=== PATIENT | female | born 2000 | race African-American/Black ===

== ENCOUNTER 2020-02-29 10:05 | Emergency (ER) | payer OTHER, MEDICAID, SELFPAY ==
[2020-02-29 10:19] VITALS: BP 119/70; PULSE 122; RESP 16; TEMP 39.6; O2SAT 99
--- NOTE | 2020-02-29 10:29 | ED.URI ---
HPI - URI/Sore Throat General Chief Complaint: Upper Respiratory Infection Stated Complaint: sore throat/body aches/sob Time Seen by Provider: 02/29/20 10:25 Source: patient Mode of arrival: ambulatory Limitations: no limitations History of Present Illness HPI Narrative: Ernestina Boone is a 19 yo female with no PMH who comes to express care with complaints of severe sore throat and fever that started on Saturday. States she can still eat a little but has not been drinking fluids and on presentation her fever is 103.3. Patient has not taken anything for fever Related Data Allergies Allergy/AdvReac Type Severity Reaction Status Date / Time nickel Allergy Mild Itching Verified 02/29/20 10:27 Review of Systems Review of Systems: Narrative: CONSTITUTIONAL: Denies fever, chills, sweats. EYES: Denies visual changes, redness, discharge. ENT: Denies rhinorrhea, congestion, sore throat, otalgia. CARDIOVASCULAR: Denies chest pain, palpitations, edema. RESPIRATORY: Denies dyspnea, wheezing, cough GASTROINTESTINAL: Denies abdominal pain, nausea, vomiting, diarrhea. GENITOURINARY: Denies dysuria, hematuria, abnormal discharge SKIN: Denies rash or itching. NEUROLOGIC: Denies numbness, or focal weakness. PSYCHIATRIC: Denies anxiety or depression. [facility] Family History Family History Other No active medical problems Social History Social History (Updated 02/29/20 @ 10:32 by Nancie Bennett CNP) Smoking status: Never smoker Alcohol intake: current Living arrangements: with family Gender identity (if verbalized by the patient): Female Comments At time of signature, I agree with nursing past medical, surgical, social and family history. There is no relevant family history pertinent to the presenting complaint. Exam Narrative: Exam Narrative: GENERAL: This is a well-nourished, well-developed patient, in mild distress. HEAD: normocephalic, atraumatic. EYES: Sclera clear/white. Vision is grossly intact. EARS: External ears normal, auditory canals clear and without drainage, TMs normal without perforation. Hearing grossly intact. NOSE: External nose normal without nasal discharge, nares without redness, no rhinorrhea. THROAT: Mucous membranes moist, posterior pharynx erythema with white patches; hard to swallow NECK: Neck supple, mild tenderness CARDIOVASCULAR: Tachycardic rate and rhythm without murmurs, gallops, or rubs. RESPIRATORY: Clear to auscultation. Breath sounds equal bilaterally. No wheezes, rales, or rhonchi. GASTROINTESTINAL: Abdomen soft, non-tender, SKIN: warm, intact with no suspicious lesions or rash, good texture and turgor. NEURO: awake, alert, and oriented to person, place and time. There were no obvious focal neurologic abnormalities. Steady gait EXTREMITIES: Normal range of motion. BACK: Nontender without deformity Course Course Emergency Course: Strep test is positive-started on penicillin; given Toradol IM here for pain and fever Patient follow-up with PCP Vital Signs Vital signs: Vital Signs Temperature 103.3 F H 02/29/20 10:19 Pulse Rate 122 H 02/29/20 10:19 Respiratory Rate 16 02/29/20 10:19 Blood Pressure 119/70 02/29/20 10:19 Pulse Oximetry 99 02/29/20 10:19 Temperature 103.3 F H 02/29/20 10:19 Pulse Rate 122 H 02/29/20 10:19 Respiratory Rate 16 02/29/20 10:19 Blood Pressure 119/70 02/29/20 10:19 Pulse Oximetry 99 02/29/20 10:19 MDM - URI/Sore Throat Differential Diagnosis Differential diagnosis: Likely upper respiratory infection, viral infection, pharyngitis and other Lab Data Labs: Strep Screen Positive Group A Strep *(Reference Range: Negative)* Strep Screen Positive Group A Strep *(Reference Range: Negative)* Discharge Plan Discharge Clinical Impression: Pharyngitis Qualifiers: Pharyngitis/tonsillitis etiology: streptococcus Qualified
== END 2020-02-29 11:09 | disposition home or self-care (01) ==
PROVIDERS: Emergency Provider Nurse Practitioner
DX: J02.0 Streptococcal pharyngitis (principal)
CPT/HCPCS: 87880; 99213; G0463

== ENCOUNTER 2021-07-09 11:35 | Emergency (ER) | payer OTHER, SELFPAY ==
[2021-07-09 11:42] VITALS: BP 118/71; PULSE 100; RESP 20; TEMP 36.2; O2SAT 99
--- NOTE | 2021-07-09 11:56 | ED.GENADULT ---
HPI - General Adult General Chief complaint: Unspecified <Tayla Doe PA-C - Last Filed: 07/09/21 13:23> Stated complaint: i feel like i might be <BRENDA Siddiqui Last Filed: 07/09/21 13:23> Time Seen by Provider: 07/09/21 11:43 <BRENDA Siddiqui Last Filed: 07/09/21 13:23> Source: patient <BRENDA Siddiqui Last Filed: 07/09/21 13:23> Mode of arrival: ambulatory <BRENDA Siddiqui Last Filed: 07/09/21 13:23> Limitations: no limitations <BRENDA Siddiqui Last Filed: 07/09/21 13:23> History of Present Illness HPI narrative: This is a 20-year-old female that presents to the emergency department and concern of a possible . Reports she did just have a menstrual cycle that started on the . Reports it was only very light bleeding and ended yesterday. This is abnormal for her and concerned her that she was possibly . She took a home test that was negative. She reports some mild lower abdominal discomfort. Also reports urinary frequency. Denies fever, vomiting, dysuria, hematuria. <Tayla Doe PA-C - Last Filed: 07/09/21 13:23> Related Data Allergies/adverse reactions: Allergies Allergy/AdvReac Type Severity Reaction Status Date / Time nickel Allergy Mild Itching Verified 02/29/20 10:27 <Tayla Doe PA-C - Last Filed: 07/09/21 13:23> Review of Systems Review of Systems: CONSTITUTIONAL: Denies fever GASTROINTESTINAL: Reports abdominal pain. Denies nausea, vomiting, or diarrhea. GENITOURINARY: Denies dysuria or hematuria. <BRENDA Siddiqui Last Filed: 07/09/21 13:23> All systems reviewed & are unremarkable except as noted in HPI and below <BRENDA Siddiqui Last Filed: 07/09/21 13:23> [facility] Past Medical History Medical History: Medical History (Updated 07/09/21 @ 13:18 by Tayla Doe PA-C) No active medical problems <Tayla Doe PA-C - Last Filed: 07/09/21 13:23> Family History Family History: Family History Other No active medical problems <Tayla Doe PA-C - Last Filed: 07/09/21 13:23> Social History Social History: Social History (Updated 07/09/21 @ 11:58 by Tayla Doe PA-C) Smoking status: Current every day smoker Alcohol intake: current Substance use: current Substance use type: marijuana Gender identity (if verbalized by the patient): Female <Tayla Doe PA-C - Last Filed: 07/09/21 13:23> Exam Narrative: GENERAL: Well-appearing, well-nourished, and in no acute distress. HEAD: Normocephalic, atraumatic. EYES: EOMI. CHEST: Clear to auscultation. No respiratory distress. No wheezes rales or rhonchi HEART: Regular rate and rhythm. No murmur heard. Normal peripheral pulses. ABDOMEN: Soft, nontender, nondistended, normal active bowel sounds. No CVA tenderness EXTREMITIES: Normal range of motion. No edema. SKIN: Warm, dry, no rash. NEURO: No focal deficits. Alert and oriented x3. PSYCH: Normal mood and affect <Tayla Doe PA-C - Last Filed: 07/09/21 13:23> Course CUSTOMS COMPLIANCE SPECIALIST/PA Physician Supervision I did not see this patient nor was the care plan discussed with me. I was available for evaluation and consultation, I agree with the documentation as above <Wolf Peralta MD - Last Filed: 07/09/21 14:10> Vital Signs Vital signs: Vital Signs Temperature 36.2 C L 07/09/21 11:42 Pulse Rate 100 07/09/21 11:42 Respiratory Rate 20 07/09/21 11:42 Blood Pressure 118/71 07/09/21 11:42 Pulse Oximetry 99 07/09/21 11:42 Temperature 36.2 C L 07/09/21 11:42 Pulse Rate 70 07/09/21 13:27 Respiratory Rate 18 07/09/21 13:27 Blood Pressure 132/68 07/09/21 13:27 Pulse Oximetry 99 07/09/21 13:27 <Tayla Doe PA-C - Last Filed: 07/09/21 13:23> Vital Signs Temperature 36.2 C L 07/09/21 11:42 Pulse Rat
[2021-07-09 12:23] LABS: Basophils Absolute Auto 0.1 K/mm3 (0.0-0.1); Basophils Percent Auto 0.7 % (0.2-1.2); Eosinophils Absolute Auto 0.2 K/mm3 (0-0.3); Eosinophils Percent Auto 2.2 % (0-4.4); Hematocrit 38.8 % (37.0-47.0); Hemoglobin 13.1 g/dL (12.0-15.0); Immature Granulocyte Absolute 0.02 K/mm3 (0.00-0.031); Immature Granulocyte Percent A 0.3 % (0-0.5); Lymphocytes Absolute Auto 1.99 K/mm3 (0.9-3.2); Lymphocytes Percent Auto 29.3 % (18.3-44.2); Mean Corpuscular HGB Conc 33.8 g/dl (32-36); Mean Corpuscular Hemoglobin 30.7 pg (26-34); Mean Corpuscular Volume 90.9 fl (80-100); Monocytes Absolute Auto 0.5 K/mm3 (0.1-0.6); Monocytes Percent Auto 7.4 % (2.6-8.5); Neutrophils Absolute Auto 4.1 K/mm3 (1.3-6.7); Neutrophils Percent Auto 60.1 % (45.5-73.1); Platelet Count Result 429 k/mm3 (150-375); Red Blood Count 4.27 M/mm3 (4.2-5.4); Red Cell Distribution Width 13.3 % (11.5-14.5); White Blood Count 6.8 K/mm3 (4.5-10.0)
[2021-07-09 12:27] LABS: Add Urine Microscopic? YES; Appearance Urine Cloudy (Clear); Bilirubin Urine Negative (Negative); Blood Urine Negative (Negative); Color Urine Yellow (Yellow); Glucose Urine UA Negative (Negative); Ketones Urine Negative (Negative); Leukocyte Esterase Ur Negative LEU/UL (Negative); Nitrate Urine Negative (Negative); Protein Urine Negative (Negative); RBC Urine 0-2 /hpf (0-2); Specific Grav Ur 1.016 (1.001-1.035); Squamous Epithelial Cell Urine Rare /hpf (Few); Urobilinogen Urine Negative mg/dL (<2.0); WBC Urine 0-3 /hpf
[2021-07-09 12:54] LABS: Alanine Aminotransferase 22 U/L (4-35); Albumin Level 4.5 g/dL (3.5-5.1); Alkaline Phosphatase 44 U/L (38-126); Anion Gap 7 mmol/L (8-16); Aspartate Amino Transferase 25 U/L (14-36); Bilirubin,Total < 0.1 mg/dL (0.2-1.3); Blood Urea Nitrogen 16 mg/dL (7-17); Calcium 9.8 mg/dL (8.4-10.2); Carbon Dioxide 29 mmol/L (22-30); Chloride 103 mmol/L (98-107); Estimated CRCL calculation 76 ml/min; Estimated Glomerular Filt Rate > 60; Glucose 82 mg/dL (65-110); Potassium 4.1 mmol/L (3.4-5.0); Sodium 139 mmol/L (137-145)
[2021-07-09 13:27] VITALS: BP 132/68; PULSE 70; RESP 18; O2SAT 99
== END 2021-07-09 13:30 | disposition home or self-care (01) ==
PROVIDERS: Physician Assistant; Emergency Provider Emergency Medicine; PCP Emergency Medicine
DX: N93.9 Abnormal uterine and vaginal bleeding, unspecified (principal); F17.200 Nicotine dependence, unspecified, uncomplicated
CPT/HCPCS: 36415; 80053; 81001; 81025; 85025; 99283

== ENCOUNTER 2022-01-06 02:57 | Observation (INO) | payer OTHER, SELFPAY ==
[2022-01-06] VITALS (7 sets, daily range): BP systolic 94–128; BP diastolic 62–84; PULSE 53–78; RESP 16–20; TEMP 36.1–36.9; O2SAT 97–100; BMI 22.6
--- NOTE | ~2022-01-06 | XR_ITS ---
EXAMINATION: XR surgery orthopedic DATE: 01/08/2022 16:15 INDICATION: ORIF right ankle fracture TECHNIQUE: 4 fluoroscopic images of the right ankle were obtained during procedure performed by Dr. Franklin guzman. Radiologist was not present for the imaging or procedure. The amount of fluoroscopy time used during this procedure was 2.9 minutes. COMPARISON: 01/06/2022 FINDINGS: Interval open reduction internal fixation of the previously noted bimalleolar fracture of the right a nkle. The medial malleolar fractures fixed with a single cannulated lag screw. The distal fibular met adiaphyseal fractures fixed with a retrograde intramedullary maggie with distal interlocking screw. Mansfield llic buttons are seen at both the tibial and fibular sides of a pair of lucent tunnels for syndesmoti c wire fixation extending across the metaphyses of the distal tibia and fibula. Alignment appears ess entially anatomic with a congruent ankle mortise. The medial malleolar fracture line appears to exten d to involve the anteromedial aspect of the tibial plafond and without significant fracture gap or in congruity. Joint spaces are relatively preserved. IMPRESSION: 1. Near-anatomic alignment post reduction and internal fixation of a bimalleolar fracture of the righ t ankle. Reviewed, dictated and finalized at location A. IMPRESSION: 1. Near-anatomic alignment post reduction and internal fixation of a bimalleola r fracture of the right ankle.
--- NOTE | ~2022-01-06 | XR_ITS ---
XR ankle RT min 3V DATE: 01/06/2022 03:41 INDICATION: Fall 2 days ago, worsening pain. TECHNIQUE: 3 views COMPARISON: None FINDINGS: Mildly comminuted fracture of the distal fibular shaft with approximately one cortical widt h lateral displacement. Transverse fracture of the medial malleolus at the level of the talar dome, with up to 2.5 mm lateral displacement. There is associated lateral subluxation of the tibiotalar joint. IMPRESSION: Comminuted distal fibular fracture and medial malleolar fracture, with lateral subluxatio n of the tibiotalar Reviewed, dictated and finalized at location A. IMPRESSION: Comminuted distal fibular fracture and medial malleolar fracture, w ith lateral subluxation of the tibiotalar
--- NOTE | 2022-01-06 03:10 | ED.LOWEXIN ---
HPI - Extremity Injury (Lower) General Chief Complaint: Extremity Injury, Lower Stated Complaint: ANKLE PAIN Time Seen by Provider: 01/06/22 03:03 Source: patient History of Present Illness HPI Narrative: Patient presents with right ankle injury. Reports he fell on the steps a couple days ago approximately 6 steps she feels like she shattered her ankle. She called EMS at that time and asked for an Ronald wrap however declined valuation emergency room. She applied tape to her ankle and a hair tie and then a Ronald wrap. She watch her symptoms at home however pain got progressively worse she had increasing swelling so she called EMS tonight and came to the ER for further evaluation. Reports pain is constant and sharp is around the whole ankle radiates up her leg worse with any sort of movement of her lower extremity. She denies any focal numbness or weakness. She denies striking her head she denies any loss of consciousness denies use of blood thinners Related Data Allergies Allergy/AdvReac Type Severity Reaction Status Date / Time nickel Allergy Mild Itching Verified 01/06/22 03:08 Review of Systems Review of Systems: CONSTITUTIONAL: Denies fever, chills, or sweats. EYES: Denies visual changes, redness, or discharge. ENT: Denies rhinorrhea, congestion, sore throat, or otalgia. CARDIOVASCULAR: Denies chest pain, palpitations, or edema. RESPIRATORY: Denies cough or dyspnea. GASTROINTESTINAL: Denies abdominal pain, nausea, vomiting, or diarrhea. GENITOURINARY: Denies dysuria or hematuria. SKIN: Denies rash or itching. MUSCULOSKELETAL: Denies back pain, joint pain, or myalgia. NEUROLOGIC: Denies headache, numbness, dizziness, or weakness. PSYCHIATRIC: Denies anxiety or depression. All systems reviewed & are unremarkable except as noted in HPI and below PMFSH Past Medical History Medical History No active medical problems Family History Family History Other No active medical problems Social History Social History Smoking status: Current every day smoker Alcohol intake: current Substance use: current Substance use type: marijuana Gender identity (if verbalized by the patient): Female Exam Narrative: GENERAL: Well-appearing, well-nourished, and in no acute distress. HEAD: Normocephalic, atraumatic. EYES: PERRLA and EOMI. ENT: Nares clear, no rhinorrhea or epistaxis. Mucous membranes moist. NECK: Supple. No masses. No JVD EXTREMITIES: Diffuse pain to the right ankle with diffuse edema sensation intact to light touch in the distal extremity cap refill less than 2 seconds in the distal extremity. Range of motion limited by pain SKIN: Warm, dry, no rash. NEURO: No focal deficits. Alert and oriented x3. PSYCH: Normal mood and affect. Course Reevaluation(s) Reevaluation #1: Patient resting comfortably patient reports does not have any social support is unable to get herself to and from clinic or the hospital right now she has no vehicle has limited funds as she recently lost her job. Patient reports she needs time to coordinate additional assistance. Patient limited ability to care for herself and concern for ability to get timely outpatient evaluation patient will be admitted for more urgent surgical management. Patient is comfortable inpatient plan. Date: 01/06/22 Time: 06:52 Consultations Consultation #1: Discussed with Dr. Murray who will admit for surgical management Date: 01/06/22 Time: 06:53 Vital Signs Vital signs: Vital Signs Temperature 36.5 C 01/06/22 03:05 Pulse Rate 77 01/06/22 03:05 Respiratory Rate 16 01/06/22 03:05 Blood Pressure 128/84 01/06/22 03:05 Pulse Oximetry 100 01/06/22 03:05 Temperature 36.5 C 01/06/22 03:05 Pulse Rate 78 01/06/22 07:13 Respiratory Rate 16 01/06/22 07:13 Blood Pressure 106/75
[2022-01-06] MEDS: MORPHINE SULFATE (*CRX) 4 MG/ML INJ IV PUSH ×5 (03:17→21:40)
[2022-01-06 03:29] LABS: Basophils Absolute Auto 0.1 K/mm3 (0.0-0.1); Basophils Percent Auto 0.9 % (0.2-1.2); Eosinophils Absolute Auto 0.2 K/mm3 (0-0.3); Hematocrit 44.7 % (37.0-47.0); Hemoglobin 14.3 g/dL (12.0-15.0); Immature Granulocyte Absolute 0.03 K/mm3 (0.00-0.031); Immature Granulocyte Percent A 0.4 % (0-0.5); Lymphocytes Absolute Auto 1.99 K/mm3 (0.9-3.2); Lymphocytes Percent Auto 25.7 % (18.3-44.2); Mean Corpuscular Hemoglobin 30.4 pg (26-34); Mean Corpuscular Volume 94.9 fl (80-100); Mean Platelet Volume 8.9 fl (7.4-10.4); Monocytes Absolute Auto 0.6 K/mm3 (0.1-0.6); Neutrophils Absolute Auto 4.8 K/mm3 (1.3-6.7); Platelet Count Result 380 k/mm3 (150-375); Red Blood Count 4.71 M/mm3 (4.2-5.4); Red Cell Distribution Width 12.9 % (11.5-14.5); White Blood Count 7.8 K/mm3 (4.5-10.0)
[2022-01-06 03:42] LABS: Alanine Aminotransferase 16 U/L (4-35); Albumin Level 4.8 g/dL (3.5-5.1); Alkaline Phosphatase 47 U/L (38-126); Anion Gap 7 mmol/L (8-16); Aspartate Amino Transferase 27 U/L (14-36); Bilirubin,Total 0.5 mg/dL (0.2-1.3); Blood Urea Nitrogen 13 mg/dL (7-17); Carbon Dioxide 27 mmol/L (22-30); Chloride 104 mmol/L (98-107); Estimated CRCL calculation 75 ml/min; Estimated Glomerular Filt Rate > 60; Glucose 108 mg/dL (65-110); Sodium 138 mmol/L (137-145)
--- NOTE | 2022-01-06 07:07 | PC.NURSE ---
Report given Karla BROWNLEE
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
[2022-01-06] MEDS: SODIUM CHLORIDE 0.9% IV 1,000 ML 125 ML IV CONT ×2 (09:36→21:40)
--- NOTE | 2022-01-06 09:57 | ADMGEN ---
This patient, Ernestina Boone, was admitted to Medical Room 343-01. Patient/family oriented to hospital policies and general routines including ID bracelet, bed and alarms, visiting hours, pain management, procedures, bathroom and other care routines, personal items, smoking policy, room service/diet, and visiting hours. Information on how to activate the Rapid Response Team has been discussed. Patient/Family are encouraged to report perceived risks to care and to ask questions if they do not understand what they are told or what they should do.
[2022-01-06 11:37] LABS: SPREG INTERNAL CONTROL Positive; Serum Qual hCG Negative
[2022-01-06 12:17] LABS: HIV 1/2 Ab P24 Ag Result Negative (Negative)
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
[2022-01-06 13:27] LABS: Hepatitis B Surface Antigen Negative (Negative)
[2022-01-06 13:33] LABS: HAV RESULT Negative (Negative); Hepatitis B Core IgM Result Negative (Negative)
[2022-01-06 13:50] LABS: Hepatitis C Virus Antibody Negative (Negative)
[2022-01-06] MEDS: HYDROcodone/acetaminophen (*CRX) 5-325 MG TABLET 1 TAB PO (14:37)
[2022-01-06 14:59] LABS: Amphetamine Screen Urine Negative (Negative); Barbiturate Screen Urine Negative (Negative); Benzodiazepines Screen Urine Negative (Negative); Cannabinoid Screen Urine Positive (Negative); Cocaine Screen Urine Negative (Negative); Methadone Screen Urine Negative (Negative); Opiate Screen Urine Positive (Negative); Phencyclidine Screen Urine Negative (Negative)
--- NOTE | 2022-01-06 17:30 | PC.NURSE ---
Patient appears to be hallucinating in room. Screaming get out of here and I hate you when by herself in the room. Upon entering the room, patient was by herself, she was not on her phone, and her tv was off.
[2022-01-06] MEDS: ALPRAZolam (*CRX) 0.5 MG TABLET PO (18:41)
[2022-01-07] MEDS: HYDROcodone/acetaminophen (*CRX) 5-325 MG TABLET 1 TAB PO ×3 (01:03→21:01)
[2022-01-07] MEDS: MORPHINE SULFATE (*CRX) 4 MG/ML INJ IV PUSH ×6 (02:37→21:30)
[2022-01-07 06:00] VITALS: BP 121/40; PULSE 56; RESP 16; TEMP 36.6; O2SAT 100
--- NOTE | 2022-01-07 08:00 | PC.NURSE ---
Patient screaming at IV pole/beeping seemed to agitate the pt. Fluids temporarily locked off while patient is eating and drinking well and will be resumed when NPO at 0000 to reduce agitation.
--- NOTE | 2022-01-07 09:03 | PM.PNORT ---
Progress Note: A&P Assessment and Plan (1) Bimalleolar ankle fracture: Onset Date: 01/04/22 Qualifiers: Encounter type: initial encounter Fracture type: closed Laterality: right Qualified Code(s): S82.841A - Displaced bimalleolar fracture of right lower leg, initial encounter for closed fracture Code(s): S82.843A - Displaced bimalleolar fracture of unspecified lower leg, initial encounter for closed fracture Status: Acute Assessment and Plan: Right ankle bimalleolar fracture with syndesmosis disruption. Patient more comfortable today but still complains of right ankle pain. Continue with ice and elevation. Operative and non operative treatment options reviewed. The risks, benefits and alternatives discussed in detail. Patient desires operative treatment. Blood work and laboratory testing partially returned with no significant abnormalities. Positive for THC. Some blood work still pending. Plan for care coordination and counseling. Plan for surgical treatment. Discussed nonoperative and operative treatment options with the patient. Risks and benefits of each as well as alternatives were reviewed. All of the patient's questions were answered. The risks of surgery reviewed including but not limited to: Neurovascular damage, wound complication, infection, blood clot, pulmonary embolus, stroke, myocardial infarction, and anesthetic risks up to and including . Continued pain and possible dysfunction were explained. Specific risks of the procedure including later recurrence of deformity. No guarantees were offered. If hardware used, discussed risk of failure/ breakage and possible need for removal. If complications occur, the patient understands the need for further treatment, possible further surgery. Patient verbalizes understanding and wishes to proceed. PLAN: Open reduction internal fixation right ankle fracture, syndesmosis disruption. (2) Acute disruption of syndesmosis of ankle joint: Code(s): S93.439A - Sprain of tibiofibular ligament of unspecified ankle, initial encounter Status: Acute Subjective Subjective Date/Time Seen: 01/07/22 09:03 Principal diagnosis: Right ankle bimalleolar fracture Interval history: patient states still with right ankle pain. More comfortable overall. Review of Systems Constitutional: Constitutional: Denies fever(s) Eyes: Eyes: Denies blurry vision ENT: Reports Normal hearing present Cardiovascular: Cardiovascular: Denies chest pain and Denies dyspnea Respiratory: Respiratory: Denies dyspnea and Denies wheezing Gastrointestinal: Gastrointestinal: Denies abdominal pain Genitourinary: Genitourinary: Denies urinary urgency Musculoskeletal: Musculoskeletal: Reports as per HPI and Denies numbness Integumentary/Breasts: Skin/Breast: Denies changing lesions and Denies sores Neurologic: Reports Normal hearing present, Denies behavioral changes, Denies confusion, Denies numbness and Denies convulsions Psychiatric: Psychiatric: Denies behavioral changes, Denies confusion and Denies hallucinations Endocrine: Endocrine: Denies heat intolerance Hematologic/Lymphatic: Hematologic/Lymphatic: Denies easy bleeding Allergic/Immunologic: Allergic/Immunologic: Denies wheezing Exam Const: General: No confusion Orientation/consciousness: patient oriented x3 and No confusion HENMT: Head: normal to inspection, normocephalic and atraumatic Eyes: Conjunctivae: conjunctivae normal Sclera: sclerae normal Neck: Neck: supple and nontender Chest: Chest palpation & inspection: normal inspection of the chest Resp: Effort & Inspection: normal respiratory effort and no audible wheezes Cardio: Rate: regular rate Rhythm: regular rhythm : General: Yes deferred Skin: General skin exam: no rashes or lesions noted Neuro: General: patient oriented x3 and No confusion Extrem: General: capillary refill normal Right upper extrem
[2022-01-07] MEDS: ALPRAZolam (*CRX) 0.5 MG TABLET PO (10:07)
--- NOTE | 2022-01-07 11:00 | PC.NURSE ---
Patient heard screaming in her room again when in the room by herself. Upon entering room, patient had baby powder caked on her face and chest. When asked if she wanted a wash rag to wash it off, she said that she wanted to leave it for a while and that it was for her acne. Will continue to monitor.
[2022-01-07 14:00] VITALS: BP 127/98; PULSE 112; RESP 18; TEMP 36.8; O2SAT 100
--- NOTE | 2022-01-07 14:00 | PC.NURSE ---
Dr. Bansal recommended calling Dr. Michelle and doing a psychiatric consult. Dr. Michelle recommended an inpatient psych referral be made via care coordination/crisis and that a consult was unnecessary at this time. After her surgery tomorrow, a referral should be made for an inpatient psych setting, as that would be more appropriate.
--- NOTE | 2022-01-07 15:36 | PM.IMCN ---
Assessment and Plan Assessment and plan (1) Acute disruption of syndesmosis of ankle joint: Code(s): S93.439A - Sprain of tibiofibular ligament of unspecified ankle, initial encounter Status: Acute Assessment and Plan: presented with complaint of right lower extremity pain unable to bear weight patient is a poor historian sometimes states fell off the stairs and sometimes he jumped off the window, however x-ray of the lower extremity showed fracture of the right ankle patient is seen by orthopedic surgeon is scheduled to have ORIF tomorrow, patient appeared to be having psychiatry problem and patient will benefit going to inpatient psychiatry care, once the patient is clinically stable will have a crisis team evaluate the patient and further recommendation to follow, patient's nurse Maite is present in the room. (2) Psychiatric disorder: Code(s): F99 - Mental disorder, not otherwise specified Status: Acute Assessment and Plan: once medically stable will have crisis team evaluate the patient patient will benefit going to inpatient psychiatry care. HPI Data of Consult Consult date: 01/07/22 Requesting Physician: Javi Murray MD Primary Care Provider: Ricky Hugo MD Consult Narrative Reason for consult: medical management Narrative: Ernestina Boone is a 21 year old female presented with complaint of right lower extremity pain unable to bear weight patient is a poor historian sometimes states fell off the stairs and sometimes he jumped off the window, however x-ray of the lower extremity showed fracture of the right ankle patient is seen by orthopedic surgeon is scheduled to have ORIF tomorrow, patient appeared to be having psychiatry problem and patient will benefit going to inpatient psychiatry care, once the patient is clinically stable will have a crisis team evaluate the patient and further recommendation to follow, patient's nurse Maite is present in the room patient admitted as observation status Review of Systems Review of Systems: ROS unobtainable: Yes unobtainable due to medical condition PMFSH Past Medical History Medical History (Updated 01/07/22 @ 15:41 by Asael Bansal MD) Acute disruption of syndesmosis of ankle joint No active medical problems Family History Family History Grandparent HIV (human immunodeficiency virus infection) Social History Social History Years smoked: 3 Smoking status: Current every day smoker Tobacco type: cigarettes Alcohol intake: never Substance use: current Substance use type: marijuana Gender identity (if verbalized by the patient): Female Spiritual care concerns: No Meds Home Medications and Allergies Home Medications Medication Instructions Recorded Confirmed Type No Home Medications 01/06/22 01/06/22 History Allergies Allergy/AdvReac Type Severity Reaction Status Date / Time nickel Allergy Mild Itching Verified 01/06/22 11:02 Vital Signs Vital Signs - 24 hr 01/06/22 22:00 01/07/22 06:00 01/07/22 14:00 Temperature 96.9 F L 97.8 F 98.2 F Pulse Rate 77 56 L 112 H Respiratory Rate 16 16 18 Blood Pressure 112/72 121/40 L 127/98 H Pulse Oximetry 100 100 100 Exam Narrative: Patient is comfortable, NAD HEENT: eyes are clear and none icteric LUNGS: normal respiratory effort ABD: not distended Lower extremities: right lower extremity edema and deformed, painful to flex and extend the ankle SKIN: nonjaundiced Neuro: grossly intact. Results Labs CBC & Chem 7: 01/06/22 03:24 01/06/22 03:24 Quality VTE Prophylaxis VTE prophylaxis: mechanical ordered
[2022-01-07 22:00] VITALS: BP 127/63; PULSE 60; RESP 18; TEMP 36.6; O2SAT 100
[2022-01-08] VITALS (13 sets, daily range): BP systolic 113–144; BP diastolic 62–90; PULSE 57–98; RESP 10–20; TEMP 36.2–37.2; O2SAT 99–100
[2022-01-08] MEDS: MORPHINE SULFATE (*CRX) 4 MG/ML INJ IV PUSH ×6 (02:09→22:52)
[2022-01-08 05:47] LABS: Hemoglobin 12.6 g/dL (12.0-15.0); Mean Corpuscular HGB Conc 33.2 g/dl (32-36); Mean Corpuscular Hemoglobin 30.4 pg (26-34); Mean Corpuscular Volume 91.8 fl (80-100); Mean Platelet Volume 8.7 fl (7.4-10.4); Platelet Count Result 373 k/mm3 (150-375); Red Blood Count 4.14 M/mm3 (4.2-5.4); Red Cell Distribution Width 12.2 % (11.5-14.5); White Blood Count 5.7 K/mm3 (4.5-10.0)
[2022-01-08 06:00] LABS: Anion Gap 4 mmol/L (8-16); Blood Urea Nitrogen 10 mg/dL (7-17); Calcium 8.6 mg/dL (8.4-10.2); Carbon Dioxide 28 mmol/L (22-30); Chloride 103 mmol/L (98-107); Estimated CRCL calculation 85 ml/min; Estimated Glomerular Filt Rate > 60; Glucose 98 mg/dL (65-110); Sodium 135 mmol/L (137-145)
[2022-01-08 06:46] LABS: Beta HCG Quantitative < 2.39 mIU/ML
--- NOTE | 2022-01-08 13:57 | WPDANESEPPF ---
Anes - Initial Pre Proc Eval Procedure: Operation Date: 01/08/22 14:30 Proposed Procedures p Open Reduction Internal Fixation Right Ankle Fracture - Javi Murray MD Date/Time: 01/08/22 13:57 Surgeon: Javi Murray MD Pre Op Diagnosis: bimalleolar fracture Patient Data Age: 21 Gender: F Height: 1.57 m Weight: 56.3 kg Last Vital Signs Temp 36.2 C L 01/08/22 06:00 Pulse 66 01/08/22 06:00 Resp 16 01/08/22 06:00 BP 113/62 01/08/22 06:00 Pulse Ox 100 01/08/22 12:53 Allergies Allergy/AdvReac Type Severity Reaction Status Date / Time nickel Allergy Mild Itching Verified 01/06/22 11:02 Home Medications Medication Instructions Recorded Confirmed Type No Home Medications 01/06/22 01/06/22 History Laboratory Tests 01/08/22 01/08/22 01/08/22 05:36 05:36 05:36 WBC 5.7 K/mm3 K/mm3 (4.5-10.0) RBC 4.14 M/mm3 L M/mm3 (4.2-5.4) Hgb 12.6 g/dL g/dL (12.0-15.0) Hct 38.0 % % (37.0-47.0) MCV 91.8 fl fl (80-100) MCH 30.4 pg pg (26-34) MCHC 33.2 g/dl g/dl (32-36) RDW 12.2 % % (11.5-14.5) Plt Count 373 k/mm3 k/mm3 (150-375) MPV 8.7 fl fl (7.4-10.4) Sodium 135 mmol/L L mmol/L (137-145) Potassium 4.0 mmol/L mmol/L (3.4-5.0) Chloride 103 mmol/L mmol/L (98-107) Carbon Dioxide 28 mmol/L mmol/L (22-30) Anion Gap 4 mmol/L L mmol/L (8-16) BUN 10 mg/dL mg/dL (7-17) Creatinine 0.70 mg/dL mg/dL (0.7-1.0) Estim Creat Clear Calc 85 ml/min ml/min Estimated GFR > 60 (59 - ) Glucose 98 mg/dL mg/dL (65-110) Calcium 8.6 mg/dL mg/dL (8.4-10.2) Beta HCG, Quant < 2.39 mIU/ML mIU/ML Patient hx anesthesia problems: none Family hx anesthesia problems: none Results Review: All pre-operative results and documents have been reviewed as part of the pre-operative evaluation. [facility] Past Medical History Medical History (Updated 01/08/22 @ 13:58 by James Marshall DO) Acute disruption of syndesmosis of ankle joint Anxiety Depression No active medical problems Family History Family History Grandparent HIV (human immunodeficiency virus infection) Social History Social History Years smoked: 3 Smoking status: Current every day smoker Tobacco type: cigarettes Alcohol intake: never Substance use: current Substance use type: marijuana Gender identity (if verbalized by the patient): Female Spiritual care concerns: No Anes - Eval Final PreProcedure Day of Procedure 01/08/22 13:57 Patient weight: normal Heart: regular rate and rhythm Lungs: clear to auscultation and normal air movement Airway: Mallampati scale class II Neurological: alert and oriented Last oral intake: >/= 8 hours ASA classification: II Emergent: no Anesthetic plan: proceed Anesthesia type and monitoring: general LMA and standard monitoring Results Review: All pre-operative results and documents have been reviewed as part of the pre-operative evaluation. Informed Consent: The patient's anesthetic plan and its attendant risks and benefits were discussed with the patient/family/POA. Questions were solicited and answers provided to the satisfaction of the patient/family/POA.
[2022-01-08] MEDS: LACTATED RINGERS 1,000 ML 30 ML IV CONT ×2 (14:10→16:31)
[2022-01-08] MEDS: KETOROLAC 15 MG/ML VIAL (*BKC) IV PUSH (14:11)
[2022-01-08] MEDS: ACETAMINOPHEN 500 MG TABLET 1000 MG PO (14:11)
--- NOTE | 2022-01-08 14:37 | WPDHPUPDATE1 ---
History and Physical Update Update Date/Time: 01/08/22 14:37 History and Physical has been reviewed, including an updated exam of the patient. There are NO changes in the patient's condition. Risks, benefits, and alternatives have been discussed and questions answered. Patient agrees to proceed with procedure.
[2022-01-08] MEDS: ceFAZolin 2 GM/D5W 50 ML 2 GM/50 ML BAG IVPB (14:44)
[2022-01-08] MEDS: BUPIVACAINE HCL 0.25% PF 30 ML VIAL INFILTRATE (15:17)
--- NOTE | 2022-01-08 16:27 | PM.IMPN ---
Progress Note: A&P Assessment and Plan (1) Acute disruption of syndesmosis of ankle joint: Code(s): S93.439A - Sprain of tibiofibular ligament of unspecified ankle, initial encounter Status: Acute Assessment and Plan: presented with complaint of right lower extremity pain unable to bear weight patient is a poor historian sometimes states fell off the stairs and sometimes he jumped off the window, however x-ray of the lower extremity showed fracture of the right ankle patient is seen by orthopedic surgeon is scheduled to have ORIF tomorrow, patient appeared to be having psychiatry problem and patient will benefit going to inpatient psychiatry care, once the patient is clinically stable will have a crisis team evaluate the patient and further recommendation to follow, patient's nurse Maite is present in the room. 01/08/2022 interval history: on 01/06 presented with complaint of right lower extremity pain, was unable to bear weight patient is a poor historian sometimes states fell off the stairs and sometimes she jumped off the window, however x-ray of the lower extremity showed fracture of the right ankle patient was seen by orthopedic surgeon is scheduled to have ORIF later today , patient appeared to be having psychiatry problem and patient will benefit going to inpatient psychiatry care, once the patient is clinically stable will have a crisis team evaluate the patient and further recommendation to follow, patient's nurse Marivel is present in the room. (2) Psychiatric disorder: Code(s): F99 - Mental disorder, not otherwise specified Status: Acute Assessment and Plan: once medically stable will have crisis team evaluate the patient patient will benefit going to inpatient psychiatry care. Subjective Date/time seen: 01/08/22 16:27 01/08/2022 interval history: on 01/06 presented with complaint of right lower extremity pain, was unable to bear weight patient is a poor historian sometimes states fell off the stairs and sometimes she jumped off the window, however x-ray of the lower extremity showed fracture of the right ankle patient was seen by orthopedic surgeon is scheduled to have ORIF later today , patient appeared to be having psychiatry problem and patient will benefit going to inpatient psychiatry care, once the patient is clinically stable will have a crisis team evaluate the patient and further recommendation to follow, patient's nurse Marivel is present in the room. Review of Systems Review of Systems: ROS unobtainable: Yes unobtainable due to medical condition Exam Narrative: Patient is comfortable, NAD HEENT: eyes are clear and none icteric LUNGS: normal respiratory effort ABD: not distended Lower extremities: right lower extremity edema and deformed, painful to flex and extend the ankle SKIN: nonjaundiced Neuro: grossly intact. Objective Data Vital Signs Vital Signs: Vital Signs - 24 hr 01/07/22 22:00 01/08/22 06:00 01/08/22 12:53 Temperature 97.9 F 97.2 F L Pulse Rate 60 66 Respiratory Rate 18 16 Blood Pressure 127/63 113/62 Pulse Oximetry 100 100 100 01/08/22 14:11 Temperature 98.3 F Pulse Rate 67 Respiratory Rate 18 Blood Pressure 138/71 Pulse Oximetry 100 Intake/Output Intake/Output: Intake & Output 01/05/22 01/06/22 01/07/22 01/08/22 23:59 23:59 23:59 23:59 Intake Total 2050 960 350 Output Total 300 800 800 Balance 1750 160 -450 Meds/Results Medications: Active Medications Generic Name Dose Route Start Last Admin Trade Name Freq PRN Reason Stop Dose Admin Acetaminophen 500 mg 01/06/22 12:34 Acetaminophen 500 Mg Tablet PO Q4H PRN Mild Pain (1-3) or Fever Hydrocodone Bitart/Acetaminophen 1 tab 01/06/22 12:34 01/07/22 21:01 Hydrocodone/Acetaminophen (*Crx) 5-325 Mg Tablet PO 1 tab Q6H PRN Administration Pain Rated 7-10 Alprazolam 0.5 mg 01/06/22 18:26 01/07/22 10:07 Alprazolam (*Crx) 0.5
--- NOTE | 2022-01-08 16:38 | P.OP_ITS ---
Procedure Note - Detailed Date of Procedure 01/08/22 Pre-op Diagnosis bimalleolar fracture, syndesmosis Post-op Diagnosis Same Procedure Performed Open reduction internal fixation right ankle bimalleolar fracture. Open reduction internal fixation syndesmosis right ankle. Surgeon Javi Murray MD Early Childhood Worker digital marketing assistant Anesthesia General Indications 21-year-old with an unstable right ankle bimalleolar fracture and syndesmosis disruption. Presents for operative treatment. Description of Procedure Patient identified in the preoperative holding. Informed consent given. Operative extremity marked. Patient received intravenous antibiotics. Patient brought to the operating room where underwent general anesthetic by anesthesia team. Positioned supine on operating room table. Time-out performed confirming the patient, site of the surgery and the plan. Lower extremity prepped and draped in the usual sterile surgical fashion using ChloraPrep skin solution. Foot and ankle exsanguinated and thigh tourniquet inflated to 250 mmHg. Fluoroscopy used and closed reduction the fracture performed. Fluoroscopic guidance to start entry point distal to the fibula with a 15 blade knife. Blunt dissection of the tip of the fibula guide pin placed through the distal fibula across the fracture into the proximal fibula. Confirmed with image intensification. Distal reaming with a 6.3 mm Reamer performed distal to the fracture. More proximal reaming with the 3.3 mm Reamer. Nail assembled on the back table. Guide maggie removed and the nail inserted to the correct depth. Proximal locking Eder deployed and verified with image intensification. Distal locking of the nail performed with stab incisions and blunt dissection down to the bone and 2.7 mm locking screws. Longitudinal incision made over the medial malleolar fracture with a 15 blade knife. Hemostasis controlled electrocautery. Periosteum incised in line with skin incision. Medial malleolus fracture reduced after irrigation and fixation achieved with a 4.0 mm cannulated screw. Image intensification confirm reduction the fractures and placement of the hardware. Instability of the syndesmosis noted fluoroscopic exam and syndesmosis repair indicated. Fibula was reduced in the incisura and verified with image intensification. Drill placed from the lateral fibula through the nail into the tibia. Tight rope assembly device then passed through the hole and deployed on the medial tibia. With the ankle in a neutral position the lateral washer then tightened. Second tight rope syndesmosis fixation performed in similar fashion with drilling through the fibula, nail and tibia. Insertion of the device and deployment medially followed by tightening washer. Image intensification confirmed final alignment and placement of the hardware. Wounds thoroughly irrigated with antibiotic solution. Wounds closed with 3-0 Monocryl interrupted suture. Sterile dressing applied. The patient was then woken from anesthesia, extubated and taken to the recovery room in stable condition. All sponge, needle, instrument counts were correct at the end of the case. Implants Arthrex fibular nail with 2.7 mm locking screw distal, 4.0 mm cannulated screw medially. Arthrex tight rope syndesmosis fixation x2 Estimated Blood Loss 5 Tourniquet Time 70 Urine Output 300 Drains No Packing No Pathology None sent Complications None Condition Stable Disposition PACU
[2022-01-08] MEDS: fentaNYL CITRATE INJ (*CRX) 100 MCG/2 ML VIAL 25 MCG IV PUSH ×4 (16:50→17:02)
[2022-01-08] MEDS: KCL 20 MEQ/D5/0.45% SOD CHL 1,000 ML 80 ML IV CONT (18:52)
[2022-01-08] MEDS: diazePAM (*CRX) 5 MG TABLET PO (18:54)
[2022-01-08] MEDS: HYDROcodone/acetaminophen (*CRX) 5-325 MG TABLET 1 TAB PO (18:54)
[2022-01-08] MEDS: SENNA/DOCUSATE SODIUM TABLET 2 TAB PO (18:56)
[2022-01-08] MEDS: FAMOTIDINE 20 MG TABLET PO (21:52)
[2022-01-09] MEDS: HYDROcodone/acetaminophen (*CRX) 5-325 MG TABLET 1 TAB PO ×2 (05:25→11:38)
[2022-01-09 05:29] VITALS: BP 127/77; PULSE 71; RESP 16; TEMP 36.6; O2SAT 100
[2022-01-09 06:12] LABS: Hematocrit 36.1 % (37.0-47.0); Hemoglobin 12.3 g/dL (12.0-15.0); Mean Corpuscular HGB Conc 34.1 g/dl (32-36); Mean Corpuscular Hemoglobin 30.4 pg (26-34); Mean Corpuscular Volume 89.4 fl (80-100); Mean Platelet Volume 9.1 fl (7.4-10.4); Platelet Count Result 386 k/mm3 (150-375); Red Blood Count 4.04 M/mm3 (4.2-5.4); Red Cell Distribution Width 11.9 % (11.5-14.5); White Blood Count 10.8 K/mm3 (4.5-10.0)
[2022-01-09 06:17] LABS: Anion Gap 4 mmol/L (8-16); Blood Urea Nitrogen 11 mg/dL (7-17); Calcium 8.8 mg/dL (8.4-10.2); Carbon Dioxide 25 mmol/L (22-30); Chloride 104 mmol/L (98-107); Estimated CRCL calculation 85 ml/min; Estimated Glomerular Filt Rate > 60; Glucose 102 mg/dL (65-110); Potassium 4.3 mmol/L (3.4-5.0); Sodium 133 mmol/L (137-145)
[2022-01-09] MEDS: MORPHINE SULFATE (*CRX) 4 MG/ML INJ IV PUSH ×4 (06:17→15:01)
[2022-01-09] MEDS: SENNA/DOCUSATE SODIUM TABLET 2 TAB PO (08:13)
[2022-01-09] MEDS: diazePAM (*CRX) 5 MG TABLET PO (08:13)
[2022-01-09] MEDS: FAMOTIDINE 20 MG TABLET PO (08:13)
[2022-01-09] MEDS: ALPRAZolam (*CRX) 0.5 MG TABLET PO ×2 (08:13→15:50)
[2022-01-09] MEDS: polyethylene glycoL 3350 17 GM POWD.PACK PO (08:13)
--- NOTE | 2022-01-09 08:55 | WPDANESPN ---
Anes - Prog Note Post-Op Date/Time: 01/09/22 08:55 Cardiovascular status: normal Respiratory status: normal Airway patency: baseline Mental status: baseline Post-Op hydration status: normal Vital Signs: Last Vital Signs Temp 97.8 F 01/09/22 05:29 Pulse 71 01/09/22 05:29 Resp 16 01/09/22 05:29 BP 127/77 01/09/22 05:29 Pulse Ox 100 01/09/22 05:29 Pain Score (VAS): 210 I/O: Intake & Output 01/08/22 01/09/22 01/09/22 23:59 07:59 15:59 Intake Total 200 900 50 Output Total 1100 Balance -900 900 50 Laboratory Tests 01/09/22 05:17 01/09/22 05:17 01/06/22 01/09/22 01/09/22 14:33 05:17 05:17 WBC 10.8 H RBC 4.04 L Hgb 12.3 Hct 36.1 L MCV 89.4 MCH 30.4 MCHC 34.1 RDW 11.9 Plt Count 386 H MPV 9.1 Sodium 133 L Potassium 4.3 Chloride 104 Carbon Dioxide 25 Anion Gap 4 L BUN 11 Creatinine 0.70 Estim Creat Clear Calc 85 Estimated GFR > 60 Glucose 102 Calcium 8.8 C.trachomatis RNA (TMA) Not detected N.gonorrhoeae RNA (TMA) Not detected Post-procedural complaints: none Patient Feedback: Patient satisfied with anesthetic care.
--- NOTE | 2022-01-09 09:56 | PM.PNORT ---
Progress Note: A&P Assessment and Plan (1) Bimalleolar ankle fracture: Onset Date: 01/04/22 Qualifiers: Encounter type: initial encounter Fracture type: closed Laterality: right Qualified Code(s): S82.841A - Displaced bimalleolar fracture of right lower leg, initial encounter for closed fracture Code(s): S82.843A - Displaced bimalleolar fracture of unspecified lower leg, initial encounter for closed fracture Status: Acute Assessment and Plan: POD #1: Open reduction internal fixation right ankle bimalleolar fracture. Open reduction internal fixation syndesmosis right ankle Continue PT/OT. NWB RLE. Crutches. Elevate foot on pillows. Ice. Pain control. Monitor vitals. Dispo: [facility] psychiatry admission per [facility] Follow up scheduled Will transition out of splint at that time (2) Acute disruption of syndesmosis of ankle joint: Code(s): S93.439A - Sprain of tibiofibular ligament of unspecified ankle, initial encounter Status: Acute Subjective Subjective Date/Time Seen: 01/09/22 09:56 Post Op day: 1 Principal diagnosis: Right Ankle Fracture Interval history: POD #1: ORIF right ankle Patient doing well. Pain right ankle, mildly controlled with pain medication. No nausea, vomiting. Concerns about current discharge plan. Review of Systems Constitutional: Constitutional: Denies fatigue, Denies fever(s), Denies night sweats and Denies weakness Cardiovascular: Cardiovascular: Denies chest pain and Denies lightheadedness Respiratory: Respiratory: Reports no additional respiratory complaints Gastrointestinal: Gastrointestinal: Reports no additional gastrointestinal complaints, Denies diarrhea, Denies nausea and Denies vomiting Genitourinary: Genitourinary: Reports no additional female genitourinary complaints Musculoskeletal: Musculoskeletal: Reports as per HPI Exam Const: General: comfortable and no acute distress Resp: Effort & Inspection: normal respiratory effort Cardio: Rate: regular rate Rhythm: regular rhythm GI: Inspection: non-distended GI Palp: Yes Soft to palpation and No Tenderness to palpation present (GI) Neuro: Cognition (Neuro): normal cognition Sensory Exam: normal sensation Extrem: Right lower extremity: knee Details: normal to inspection and normal ROM; no tenderness and no swelling, lower leg (Splint in place, c/d/i ), ankle (splint in place, c/d/i) and foot (Moves toes, sensation intact, good capillary refill.) Objective Data Vital Signs Vital Signs: Vital Signs - 24 hr 01/08/22 12:53 01/08/22 14:11 01/08/22 16:31 Temperature 36.8 C 36.6 C Pulse Rate 67 90 Respiratory Rate 18 19 Blood Pressure 138/71 119/69 Pulse Oximetry 100 100 100 01/08/22 16:45 01/08/22 17:00 01/08/22 17:15 Temperature Pulse Rate 68 75 60 Respiratory Rate 10 L 13 14 Blood Pressure 128/72 138/82 132/90 Pulse Oximetry 100 99 100 01/08/22 17:29 01/08/22 17:40 01/08/22 17:50 Temperature 36.9 C 37.2 C Pulse Rate 57 L 63 67 Respiratory Rate 14 16 16 Blood Pressure 138/90 134/86 117/65 Pulse Oximetry 100 100 100 01/08/22 18:25 01/08/22 19:40 01/08/22 23:19 Temperature 36.9 C 36.6 C 36.8 C Pulse Rate 58 L 88 98 Respiratory Rate 16 20 20 Blood Pressure 134/76 144/82 H 136/71 Pulse Oximetry 100 100 100 01/09/22 05:29 Temperature 36.6 C Pulse Rate 71 Respiratory Rate 16 Blood Pressure 127/77 Pulse Oximetry 100 Intake/Output Intake/Output: Intake & Output 01/06/22 01/07/22 01/08/22 01/09/22 23:59 23:59 23:59 23:59 Intake Total 2050 960 550 980 Output Total 134 625 1332 Balance 1750 160 -1350 980 Meds/Results Medications: Active Medications Generic Name Dose Route Start Last Admin Trade Name Freq PRN Reason Stop Dose Admin Acetaminophen 500 mg 01/06/22 12:34 Acetaminophen 500 Mg Tablet PO Q4H PRN Mild Pain (1-3) or Fever Hydrocodone Bitart/Acetaminophen 1 tab 01/06/22 12:34 03
[2022-01-09 10:10] VITALS: BP 134/80; PULSE 65; RESP 14; TEMP 36.1; O2SAT 100
--- NOTE | 2022-01-09 10:43 | PM.IMPN ---
Progress Note: A&P Assessment and Plan (1) Acute disruption of syndesmosis of ankle joint: Code(s): S93.439A - Sprain of tibiofibular ligament of unspecified ankle, initial encounter Status: Acute Assessment and Plan: Status post ORIF Orthopedic managing DVT prophylaxis by Orthopedic (2) Psychiatric disorder: Code(s): F99 - Mental disorder, not otherwise specified Status: Acute Assessment and Plan: Patient medically stable for discharge patient will benefit going to inpatient psychiatry care. Subjective Date/time seen: 01/09/22 10:43 Interval history: Patient seen and examined Patient feels better today leg pain has improved Patient denies fever headache chest pain shortness of breath I am seeing the patient for medical management Exam Narrative: Patient is comfortable, NAD HEENT: eyes are clear and none icteric LUNGS: normal respiratory effort ABD: not distended Lower extremities: right lower extremity edema and deformed, painful to flex and extend the ankle SKIN: nonjaundiced Neuro: grossly intact. Objective Data Vital Signs Vital Signs: Vital Signs - 24 hr 01/08/22 12:53 01/08/22 14:11 01/08/22 16:31 Temperature 98.3 F 97.8 F Pulse Rate 67 90 Respiratory Rate 18 19 Blood Pressure 138/71 119/69 Pulse Oximetry 100 100 100 01/08/22 16:45 01/08/22 17:00 01/08/22 17:15 Temperature Pulse Rate 68 75 60 Respiratory Rate 10 L 13 14 Blood Pressure 128/72 138/82 132/90 Pulse Oximetry 100 99 100 01/08/22 17:29 01/08/22 17:40 01/08/22 17:50 Temperature 98.5 F 99.0 F Pulse Rate 57 L 63 67 Respiratory Rate 14 16 16 Blood Pressure 138/90 134/86 117/65 Pulse Oximetry 100 100 100 01/08/22 18:25 01/08/22 19:40 01/08/22 23:19 Temperature 98.5 F 97.9 F 98.2 F Pulse Rate 58 L 88 98 Respiratory Rate 16 20 20 Blood Pressure 134/76 144/82 H 136/71 Pulse Oximetry 100 100 100 01/09/22 05:29 01/09/22 10:10 Temperature 97.8 F 96.9 F L Pulse Rate 71 65 Respiratory Rate 16 14 Blood Pressure 127/77 134/80 Pulse Oximetry 100 100 Intake/Output Intake/Output: Intake & Output 01/06/22 01/07/22 01/08/22 01/09/22 23:59 23:59 23:59 23:59 Intake Total 2050 960 550 980 Output Total 563 000 6077 Balance 1750 160 -1350 980 Meds/Results Medications: Active Medications Generic Name Dose Route Start Last Admin Trade Name Freq PRN Reason Stop Dose Admin Acetaminophen 500 mg 01/06/22 12:34 Acetaminophen 500 Mg Tablet PO Q4H PRN Mild Pain (1-3) or Fever Hydrocodone Bitart/Acetaminophen 1 tab 01/06/22 12:34 01/09/22 05:25 Hydrocodone/Acetaminophen (*Crx) 5-325 Mg Tablet PO 1 tab Q6H PRN Administration Pain Rated 7-10 Alprazolam 0.5 mg 01/06/22 18:26 01/09/22 08:13 Alprazolam (*Crx) 0.5 Mg Tablet PO 0.5 mg TID PRN Administration Anxiety Diazepam 5 mg 01/08/22 17:34 01/09/22 08:13 Diazepam (*Crx) 5 Mg Tablet PO 5 mg Q8H PRN Administration Muscle Spasm Famotidine 20 mg 01/08/22 21:00 01/09/22 08:13 Famotidine 20 Mg Tablet PO 20 mg Q12HR GILDARDO Administration Ibuprofen 400 mg in 100 mls @ 200 mls/hr 01/06/22 12:34 Caldolor 400 Mg/100 Ml IVPB Q6H PRN Pain Rated 4-6 Cefazolin Sodium 1 gm in 50 mls @ 100 mls/hr 01/08/22 23:00 01/09/22 08:06 Ancef 1 Gm/D5w 50 Ml Pm IVPB 01/09/22 15:29 Infused Q8H GILDARDO Infusion Morphine Sulfate 4 mg 01/06/22 06:56 01/09/22 08:13 Morphine Sulfate (*Crx) 4 Mg/Ml Inj IV PUSH 4 mg Q2H PRN Administration Pain Rated 7-10 Ondansetron HCl 4 mg 01/08/22 14:21 Ondansetron Inj 4 Mg/2 Ml Vial IV PUSH ONCE PRN Nausea Ondansetron HCl 4 mg 01/08/22 17:34 Ondansetron Inj 4 Mg/2 Ml Vial IV PUSH Q4H PRN Nausea And Vomiting Polyethylene Glycol 17 gm 01/09/22 09:00 01/09/22 08:13 Polyethylene Glycol 3350 17 Gm Powd.Pack PO 17 gm QAM GILDARDO Administration Senna/Docusate Sodium 2
[2022-01-09 12:00] LABS: EDCOVIDSCREEN Negative (Negative)
[2022-01-09 15:19] VITALS: BP 126/79; PULSE 72; RESP 14; TEMP 36.1; O2SAT 100
== END 2022-01-09 16:55 ==
LOC: ANHED 06:55 → ANH3MED 07:59
PROVIDERS: Anesthesiology; Family Medicine; Internal Medicine; Admitting Provider Orthopaedic Surgery; Emergency Provider Emergency Medicine; PCP Emergency Medicine; Visit Provider Orthopaedic Surgery
PROC: (CPT 27814; principal; 2022-01-08 14:30)
DX: S82.841A Displaced bimalleolar fracture of right lower leg, initial encounter for closed fracture (principal); S93.431A Sprain of tibiofibular ligament of right ankle, initial encounter; W10.9XXA Fall (on) (from) unspecified stairs and steps, initial encounter; F99 Mental disorder, not otherwise specified; F17.210 Nicotine dependence, cigarettes, uncomplicated
CPT/HCPCS: 27814; 27829; 36415; 73610; 80048; 80053; 80074; 80307; 84702; 84703; 85025; 85027; 86695; 86696; 86703; 87426; 87491; 87591; 96374; 96376; 97162; 97165; 99285; A9270; C1713; C1769; C9803; G0378; G0379; G0432; J0690; J1100; J1885; J2250; J2270; J2405; J2704; J3010; J3480; J7030; J7120

== ENCOUNTER 2022-09-05 21:12 | Emergency (ER) | payer OTHER, SELFPAY ==
[2022-09-05 21:18] VITALS: BP 124/68; PULSE 103; RESP 16; TEMP 36.8; O2SAT 98
[2022-09-05 21:47] LABS: Basophils Percent Auto 0.3 % (0.2-1.2); Hematocrit 37.4 % (37.0-47.0); Hemoglobin 12.5 g/dL (12.0-15.0); Immature Granulocyte Absolute 0.07 K/mm3 (0.00-0.031); Immature Granulocyte Percent A 0.5 % (0-0.5); Lymphocytes Absolute Auto 1.73 K/mm3 (0.9-3.2); Mean Corpuscular HGB Conc 33.4 g/dl (32-36); Mean Corpuscular Hemoglobin 29.9 pg (26-34); Mean Corpuscular Volume 89.5 fl (80-100); Mean Platelet Volume 8.9 fl (7.4-10.4); Monocytes Absolute Auto 1.5 K/mm3 (0.1-0.6); Monocytes Percent Auto 10.7 % (2.6-8.5); Neutrophils Percent Auto 76.5 % (45.5-73.1); Platelet Count Result 412 k/mm3 (150-375); Red Blood Count 4.18 M/mm3 (4.2-5.4); Red Cell Distribution Width 12.8 % (11.5-14.5); White Blood Count 14.4 K/mm3 (4.5-10.0)
[2022-09-05 22:05] LABS: Alanine Aminotransferase 17 U/L (6-35); Alkaline Phosphatase 55 U/L (38-126); Anion Gap 12 mmol/L (8-16); Aspartate Amino Transferase 23 U/L (14-36); Blood Urea Nitrogen 16 mg/dL (7-17); Calcium 9.5 mg/dL (8.4-10.2); Carbon Dioxide 18 mmol/L (22-30); Chloride 104 mmol/L (98-107); Estimated CRCL calculation 86 ml/min; Estimated Glomerular Filt Rate > 60; Glucose 102 mg/dL (65-110); Potassium 3.8 mmol/L (3.4-5.0); Sodium 134 mmol/L (137-145)
--- NOTE | 2022-09-05 22:08 | ED.PSYCH ---
HPI - Psych General Chief Complaint: Psychiatric Symptoms <Jose M Jarrell APRN - Last Filed: 09/05/22 23:31> Stated Complaint: SI; HALLUCINATIONS <Jose M Jarrell APRN - Last Filed: 09/05/22 23:31> Time Seen by Provider: 09/05/22 21:15 <Jose M Jarrell APRN - Last Filed: 09/05/22 23:31> History of Present Illness HPI Narrative: 21-year-old female history of schizophrenia presents to the emergency room for suicidal thoughts for several months. Patient states that she has a plan but did not want to discuss it with provider. Patient states that she discontinued her schizophrenia medications 3 months ago, and did not follow-up with her primary to get them refilled. Patient reports auditory hallucinations that are telling her she is going to . <Jose M Jarrell APRN - Last Filed: 09/05/22 23:31> Related Data Allergies/Adverse Reactions: Allergies Allergy/AdvReac Type Severity Reaction Status Date / Time nickel Allergy Mild Itching Verified 03/14/22 13:09 <Jose M Jarrell APRN - Last Filed: 09/05/22 23:31> Review of Systems Review of Systems: CONSTITUTIONAL: Denies fever, chills, or sweats. EYES: Denies visual changes, redness, or discharge. ENT: Denies rhinorrhea, congestion, sore throat, or otalgia. CARDIOVASCULAR: Denies chest pain, palpitations, or edema. RESPIRATORY: Denies cough or dyspnea. GASTROINTESTINAL: Denies abdominal pain, nausea, vomiting, or diarrhea. GENITOURINARY: Denies dysuria or hematuria. SKIN: Denies rash or itching. MUSCULOSKELETAL: Denies back pain, joint pain, or myalgia. NEUROLOGIC: Denies headache, numbness, dizziness, or weakness. PSYCHIATRIC: Reports suicidal ideation, auditory hallucinations <Jose M Jarrell APRN - Last Filed: 09/05/22 23:31> PMFSH Past Medical History Medical History: Medical History Acute disruption of syndesmosis of ankle joint Anxiety Depression Encounter for postoperative care No active medical problems Trimalleolar fracture of right ankle Weight gain <Jose M Jarrell APRN - Last Filed: 09/05/22 23:31> Surgical History Surgical History: Surgical History Aftercare following right ankle joint replacement surgery Right ankle ORIF DOS: 01/08/2022 Dr. Murray <Jose M Jarrell APRN - Last Filed: 09/05/22 23:31> Family History Family History: Family History Grandparent HIV (human immunodeficiency virus infection) <Jose M Jarrell APRN - Last Filed: 09/05/22 23:31> Social History Social History: Social History Years smoked: 3 Smoking status: Current every day smoker Tobacco type: cigarettes Alcohol intake: never Substance use: current Substance use type: marijuana Gender identity (if verbalized by the patient): Female Spiritual care concerns: No <Jose M Jarrell APRN - Last Filed: 09/05/22 23:31> Exam Narrative: GENERAL: Well-appearing, well-nourished, no physical limitations, and in no acute distress. HEAD: Normocephalic, atraumatic. EYES: Conjunctivae normal, PERRLA and EOMI. CHEST: Clear to auscultation. No respiratory distress. No wheezes rales or rhonchi. HEART: Regular rate and rhythm. No murmur heard. Normal peripheral pulses. BACK: No CVA tenderness; No cervical/thoracic/lumbar tenderness, step-offs, bony abnormality; FROM EXTREMITIES: Normal range of motion. No edema. No clubbing or cyanosis SKIN: Warm, dry, no rash. No noted wounds NEURO: No focal deficits. Alert and oriented x3. MAEW. CN's II-XI intact bilaterally, normal gait PSYCH: Cooperative. Flat affect <Jose M Jarrell APRN - Last Filed: 09/05/22 23:31> Course Course Emergency Course: 2330: Patient is medically cleared for psych evaluation. <Jose M Jarrell APRN - Last Filed: 09/05/22 23
[2022-09-05 22:09] LABS: Ethanol < 10 mg/dL (<10)
[2022-09-05 22:18] LABS: Acetaminophen < 10 ug/mL (10-30)
[2022-09-05 22:23] LABS: Influenza A QL RT-PCR Negative (Negative); Influenza B QL RT-PCR Negative (Negative); SARS-CoV-2 RNA PCR Negative
[2022-09-05 22:35] LABS: Thyroid Stimulating Hormone 0.557 uIU/mL (0.465-4.680)
[2022-09-05 23:09] LABS: Add Urine Microscopic? YES; Appearance Urine Clear (Clear); Bilirubin Urine 1+ (Negative); Blood Urine Negative (Negative); Color Urine Yellow (Yellow); Glucose Urine UA Negative (Negative); Ketones Urine 2+ mg/dL (Negative); Leukocyte Esterase Ur Negative LEU/UL (Negative); Nitrate Urine Negative (Negative); Protein Urine 1+ mg/dL (Negative); Specific Grav Ur >= 1.030 (1.001-1.035)
[2022-09-05 23:14] LABS: Bacteria Urine Trace /hpf; Mucus Urine Heavy /lpf; Squamous Epithelial Cell Urine Occasional /hpf (Few); WBC Urine 0-3 /hpf
[2022-09-05 23:24] LABS: Amphetamine Screen Urine Negative (Negative); Barbiturate Screen Urine Negative (Negative); Benzodiazepines Screen Urine Negative (Negative); Cannabinoid Screen Urine Positive (Negative); Cocaine Screen Urine Negative (Negative); Methadone Screen Urine Negative (Negative); Opiate Screen Urine Negative (Negative); Phencyclidine Screen Urine Negative (Negative)
--- NOTE | 2022-09-06 04:49 | PC.NURSE ---
Attempted to call RN to RN report at [place] at [phone], was asked to call back in 10 minutes.
[2022-09-06 06:42] VITALS: BP 111/71; PULSE 82; RESP 16; TEMP 37; O2SAT 100
--- NOTE | 2022-09-06 07:17 | PC.NURSE ---
Report given to TORRIE Sandoval.
--- NOTE | 2022-09-06 07:24 | PC.NURSE ---
pt verbalizing she does not think she needs psychiatric treatment. Dr. Hunt made aware. Crisis called and will be here around 0800 to reevaluate pt. Called [facility] to update them.
[2022-09-06 08:21] VITALS: BP 107/62; PULSE 86; RESP 18; TEMP 36.6; O2SAT 99
--- NOTE | 2022-09-06 08:22 | PC.NURSE ---
ordered pt safety breakfast tray. pt resting comfortably in stretcher with sitter at bedside.
--- NOTE | 2022-09-06 09:20 | PC.NURSE ---
Crisis here for reevaluation. pt denies any SI or HI at this time. Crisis states pt will be placed on a safety plan.
--- NOTE | 2022-09-06 09:28 | PC.NURSE ---
Dr. Mosquera made aware of plan for safety contract. Dr. Mosquera states he feels comfortable with safety plan and is okay with discharging pt.
--- NOTE | 2022-09-06 09:33 | PC.NURSE ---
Called [facility] to update on pt's plan for discharge on safety contract.
== END 2022-09-06 10:14 | disposition home or self-care (01) ==
PROVIDERS: Emergency Medicine; Nurse Practitioner Family; Emergency Provider Emergency Medicine; PCP Emergency Medicine
DX: F32.A Depression, unspecified (principal); Z20.822 Contact with and (suspected) exposure to COVID-19; F20.9 Schizophrenia, unspecified; F17.210 Nicotine dependence, cigarettes, uncomplicated
CPT/HCPCS: 36415; 80053; 80307; 81001; 81025; 84443; 85025; 87636; 99284

== ENCOUNTER 2022-09-30 18:38 | Emergency (ER) | payer OTHER, SELFPAY ==
[2022-09-30] VITALS (7 sets, daily range): BP systolic 124–136; BP diastolic 56–77; PULSE 56; RESP 18; TEMP 36.6; O2SAT 98–100
--- NOTE | 2022-09-30 18:40 | ECG_ITS ---
Measurements Intervals [place] Rate: 48 P: 43 OK: 135 QRS: 46 QRSD: 82 T: 60 QT: 422 QTc: 378 Interpretive Statements SINUS BRADYCARDIA T WAVE ABNORMALITY IN ANTERIOR LEADS- CONSIDER ISCHEMIA BASELINE ARTIFACT- I, II, AVR ABNORMAL ECG NO PREVIOUS ECG AVAILABLE FOR COMPARISON Electronically Signed On 10-01-2022 7:43:22 FIRMWARE DEVELOPER by Gilberto Gross D.O.
--- NOTE | 2022-09-30 19:33 | PC.NURSE ---
1909 Assumed pt care from Brooke Benson RN
--- NOTE | 2022-09-30 19:35 | ED.PSYCH ---
HPI - Psych General Chief Complaint: Psychiatric Symptoms <Christelle Mendoza MD - Last Filed: 10/02/22 18:43> Stated Complaint: SI/OD <Christelle Mendoza MD - Last Filed: 10/02/22 18:43> History of Present Illness HPI Narrative: Patient is a 22-year-old female with a history of depression presenting after suicide attempt. Patient states that yesterday she took between 20 and 50 Tylenol pills and then drink oil tank car cleaner. States that this was with the intent of hurting herself. States that she has engaged in self injurious behaviors in the past by cutting herself. States that she has been increasingly depressed. She denies homicidal ideation. States that today she began vomiting so her became concerned and called EMS. States that she also has diffuse abdominal pain. No chest pain, shortness of breath, cough, vision changes, numbness or weakness. <Christelle Mendoza MD - Last Filed: 10/02/22 18:43> Related Data Allergies/Adverse Reactions: Allergies Allergy/AdvReac Type Severity Reaction Status Date / Time nickel Allergy Mild Itching Verified 03/14/22 13:09 <Christelle Mendoza MD - Last Filed: 10/02/22 18:43> Review of Systems Review of Systems: All systems reviewed & are unremarkable except as noted in HPI and below <Christelle Mendoza MD - Last Filed: 10/02/22 18:43> [facility] Past Medical History Medical History: Medical History Acute disruption of syndesmosis of ankle joint Anxiety Depression Encounter for postoperative care No active medical problems Trimalleolar fracture of right ankle Weight gain <Christelle Mendoza MD - Last Filed: 10/02/22 18:43> Surgical History Surgical History: Surgical History Aftercare following right ankle joint replacement surgery Right ankle ORIF DOS: 01/08/2022 Dr. Murray <Christelle Mendoza MD - Last Filed: 10/02/22 18:43> Family History Family History: Family History Grandparent HIV (human immunodeficiency virus infection) <Christelle Mendoza MD - Last Filed: 10/02/22 18:43> Social History Social History: Social History Years smoked: 3 Smoking status: Current every day smoker Tobacco type: cigarettes Alcohol intake: never Substance use: current Substance use type: unknown Living arrangements: with family Occupation/Education: unemployed Gender identity (if verbalized by the patient): Female Spiritual care concerns: No <Christelle Mendoza MD - Last Filed: 10/02/22 18:43> Exam Narrative: GENERAL: Well-appearing, well-nourished, and in no acute distress. HEAD: Normocephalic, atraumatic. EYES: PERRLA and EOMI. ENT: Nares clear, no rhinorrhea or epistaxis. Mucous membranes moist. NECK: Supple. CHEST: Clear to auscultation. No respiratory distress. HEART: Regular rate and rhythm. No murmur heard. Normal peripheral pulses. ABDOMEN: Soft, nontender, nondistended, normal active bowel sounds. EXTREMITIES: Normal range of motion. No edema. SKIN: Warm, dry, no rash. NEURO: No focal deficits. Alert and oriented x3. PSYCH: Flat affect,+ SI,-HI <Christelle Mendoza MD - Last Filed: 10/02/22 18:43> Course Course Emergency Course: Patient resting comfortably and cooperative. Excepted to [place] by Dr. [place]. <Ethan Sutton MD - Last Filed: 10/01/22 18:09> Reevaluation(s) Reevaluation #1: Patient medically cleared for inpatient psychiatric hospitalization. Very mild UTI being treated with Keflex. <Ethan Sutton MD - Last Filed: 10/01/22 18:09> Date: 10/01/22 <Ethan Sutton MD - Last Filed: 10/01/22 18:09> Time: 07:30 <Ethan Sutton MD - Last Filed: 10/01/22 18:09> Vital Signs Vital signs: Vital Signs [place]
[2022-09-30] MEDS: SODIUM CHLORIDE 0.9% IV 1,000 ML 999 ML IV CONT (20:54)
[2022-09-30] MEDS: ONDANSETRON INJ 4 MG/2 ML VIAL IV PUSH (20:55)
[2022-09-30] MEDS: KETOROLAC 15 MG/ML VIAL (*BKC) IV PUSH (20:56)
[2022-09-30 22:48] LABS: Basophils Absolute Auto 0.1 K/mm3 (0.0-0.1); Basophils Percent Auto 0.7 % (0.2-1.2); Eosinophils Absolute Auto 0.2 K/mm3 (0-0.3); Eosinophils Percent Auto 2.1 % (0-4.4); Hematocrit 40.6 % (37.0-47.0); Hemoglobin 13.2 g/dL (12.0-15.0); Immature Granulocyte Absolute 0.02 K/mm3 (0.00-0.031); Immature Granulocyte Percent A 0.2 % (0-0.5); Lymphocytes Absolute Auto 2.18 K/mm3 (0.9-3.2); Lymphocytes Percent Auto 25.7 % (18.3-44.2); Mean Corpuscular HGB Conc 32.5 g/dl (32-36); Mean Corpuscular Hemoglobin 29.3 pg (26-34); Mean Corpuscular Volume 90.2 fl (80-100); Mean Platelet Volume 9.2 fl (7.4-10.4); Monocytes Absolute Auto 0.7 K/mm3 (0.1-0.6); Monocytes Percent Auto 8.7 % (2.6-8.5); Neutrophils Absolute Auto 5.3 K/mm3 (1.3-6.7); Neutrophils Percent Auto 62.6 % (45.5-73.1); Platelet Count Result 438 k/mm3 (150-375); Red Cell Distribution Width 13.1 % (11.5-14.5); White Blood Count 8.5 K/mm3 (4.5-10.0)
[2022-09-30 23:00] LABS: Alanine Aminotransferase 19 U/L (6-35); Albumin Level 4.3 g/dL (3.5-5.1); Alkaline Phosphatase 52 U/L (38-126); Anion Gap 6 mmol/L (8-16); Aspartate Amino Transferase 24 U/L (14-36); Blood Urea Nitrogen 11 mg/dL (7-17); Calcium 8.9 mg/dL (8.4-10.2); Carbon Dioxide 28 mmol/L (22-30); Chloride 103 mmol/L (98-107); Estimated Glomerular Filt Rate > 60; Glucose 86 mg/dL (65-110); Potassium 3.1 mmol/L (3.4-5.0); Sodium 137 mmol/L (137-145)
[2022-09-30 23:01] LABS: Acetaminophen < 10 ug/mL (10-30); Ethanol < 10 mg/dL (<10); Salicylate < 1.0 mg/dL (2-20)
[2022-09-30 23:10] LABS: Amphetamine Screen Urine Negative (Negative); Barbiturate Screen Urine Negative (Negative); Benzodiazepines Screen Urine Negative (Negative); Cannabinoid Screen Urine Positive (Negative); Cocaine Screen Urine Negative (Negative); Methadone Screen Urine Negative (Negative); Opiate Screen Urine Negative (Negative); Phencyclidine Screen Urine Negative (Negative)
[2022-09-30 23:24] LABS: Influenza A QL RT-PCR Negative (Negative); Influenza B QL RT-PCR Negative (Negative); SARS-CoV-2 RNA PCR Negative
[2022-09-30 23:24] LABS: Mucus Urine Heavy /lpf; RBC Urine 21-50 /hpf (0-2); Squamous Epithelial Cell Urine Few /hpf (Few); WBC Urine 31-50 /hpf
[2022-09-30 23:27] LABS: Appearance Urine Clear (Clear); Bilirubin Urine 1+ (Negative); Blood Urine Negative (Negative); Color Urine Yellow (Yellow); Glucose Urine UA Negative (Negative); Ketones Urine 3+ mg/dL (Negative); Leukocyte Esterase Ur 2+ LEU/UL (Negative); Nitrate Urine Negative (Negative); Protein Urine 2+ mg/dL (Negative); Urobilinogen Urine 0.2 mg/dL (<2.0)
[2022-09-30 23:28] LABS: Add Urine Microscopic? YES
[2022-10-01] MEDS: CEPHALEXIN 250 MG CAPSULE 500 MG PO (08:17)
[2022-10-01 08:20] VITALS: BP 125/77; PULSE 56; RESP 18; TEMP 36.6; O2SAT 99
[2022-10-01 10:49] LABS: Pregnancy On Board Control Positive; Urine Pregnancy Test Negative
[2022-10-01 11:16] VITALS: BP 111/69; PULSE 64; RESP 18; TEMP 36.9; O2SAT 100
--- NOTE | 2022-10-01 12:15 | PC.NURSE ---
1203 Poison control notified of pt inital assessment and tylenol, and substance ingestion. Poison control recommeneded to repeat coags, left, blood asprin and tylenol levels
--- NOTE | 2022-10-01 12:26 | ECG_ITS ---
Measurements Intervals [place] Rate: 51 P: 4 MO: 144 QRS: 24 QRSD: 85 T: 19 QT: 390 QTc: 361 Interpretive Statements SINUS BRADYCARDIA T WAVE ABNORMALITY IN ANTERIOR LEADS- CONSIDER ISCHEMIA ABNORMAL ECG COMPARED TO ECG 09/30/2022 21:11:14 NO SIGNIFICANT CHANGES Electronically Signed On 10-01-2022 12:59:49 MARKETING ADMINISTRATIVE ASSISTANT by Gilberto Gross D.O.
[2022-10-01 12:46] LABS: Acetaminophen < 10 ug/mL (10-30); Salicylate < 1.0 mg/dL (2-20)
[2022-10-01 12:47] LABS: INR 1.2; Prothrombin Time 14.7 Seconds (11.1-14.7)
[2022-10-01 12:48] LABS: Alanine Aminotransferase 39 U/L (6-35); Albumin Level 4.5 g/dL (3.5-5.1); Alkaline Phosphatase 51 U/L (38-126); Aspartate Amino Transferase 54 U/L (14-36); Bilirubin,Total 1.2 mg/dL (0.2-1.3); Partial Thromboplastin Time 30.8 SECONDS (22.3-36.8)
--- NOTE | 2022-10-01 13:14 | PC.NURSE ---
Mary Jane at poison control contacted, laboratory results reviewed, pt case closed and cleared.
--- NOTE | 2022-10-01 13:17 | PC.NURSE ---
Pt Medically cleared per Dr. Sutton
--- NOTE | 2022-10-01 13:32 | PC.NURSE ---
Updated labs faxed to [facility] Eller and Cynthia at [phone]
--- NOTE | 2022-10-01 15:16 | PC.NURSE ---
Pt requesting to go home. Jeremiah contacted to review pt status. Recommendation is for inpatient placement. discussed with recommendation for placement. Pt now denying ingesting Tylenol/chemicals. Dr. Sutton and queenie notified.
[2022-10-01 16:05] VITALS: BP 134/79; PULSE 59; RESP 18; O2SAT 100
--- NOTE | 2022-10-01 16:59 | PC.NURSE ---
Discussed recommendation of Dr. Sutton for placement for inpatient psych. Reviewed voluntary placement with patient and pt verbalized agreement to voluntary placement
[2022-10-01] MEDS: POTASSIUM CHLORIDE 20 MEQ TABLET 40 MEQ PO (19:10)
--- NOTE | 2022-10-01 19:24 | PC.NURSE ---
Addendum entered by Stephanie Neal 10/01/22 19:51: @ 193 called [facility] to request transport. No trucks available @1943 called [facility] to request transport. Will call back after getting supervisor mapping approval. @1947 called [facility] to request transport. No transfer truck tonight @1948 called [facility] to request transport. declined. Original Note: called [facility] for ETA update. They cannot take this patient tonight because they got busy with 911 calls. Stated they tried to call the ER but the voicemail said it wasn't set up.
[2022-10-01] MEDS: CEPHALEXIN 500 MG CAPSULE PO (21:37)
--- NOTE | 2022-10-01 21:50 | PC.NURSE ---
called [facility] for ETA update. ETA 0015 due to emergency calls
--- NOTE | 2022-10-02 00:41 | PC.NURSE ---
Received call from [facility], updated ETA [id number]
[2022-10-02 02:07] VITALS: BP 122/64; PULSE 63; O2SAT 100
--- NOTE | 2022-10-02 02:12 | PC.NURSE ---
[facility] here
--- NOTE | 2022-10-02 02:22 | PC.NURSE ---
EMS here for pt transfer at this time. Pt cooperative with transfer. Dacia, at [place] made aware of pt departure, Dacia stated pt will be assigned to rm 9B.
== END 2022-10-02 02:23 ==
PROVIDERS: Emergency Medicine; Emergency Provider Emergency Medicine; PCP Emergency Medicine
DX: T39.1X2A Poisoning by 4-Aminophenol derivatives, intentional self-harm, initial encounter (principal); Z20.822 Contact with and (suspected) exposure to COVID-19; R00.1 Bradycardia, unspecified; R94.31 Abnormal electrocardiogram [ECG] [EKG]
CPT/HCPCS: 36415; 80053; 80076; 80307; 81001; 81025; 84443; 85025; 85610; 85730; 87086; 87636; 93005; 96361; 96374; 96375; 99285; A9270; J1885; J2405; J7030

== ENCOUNTER 2023-01-08 22:42 | Emergency (ER) | payer OTHER, SELFPAY ==
[2023-01-08 22:46] VITALS: BP 120/70; PULSE 95; RESP 18; TEMP 36.7; O2SAT 100
[2023-01-08 23:10] LABS: Basophils Percent Auto 0.5 % (0.2-1.2); Eosinophils Absolute Auto 0.2 K/mm3 (0-0.3); Eosinophils Percent Auto 6.3 % (0-4.4); Immature Granulocyte Absolute 0.01 K/mm3 (0.00-0.031); Immature Granulocyte Percent A 0.3 % (0-0.5); Mean Corpuscular HGB Conc 33.3 g/dl (32-36); Mean Corpuscular Hemoglobin 29.7 pg (26-34); Mean Corpuscular Volume 89.1 fl (80-100); Mean Platelet Volume 8.9 fl (7.4-10.4); Monocytes Absolute Auto 0.3 K/mm3 (0.1-0.6); Monocytes Percent Auto 7.9 % (2.6-8.5); Platelet Count Result 454 k/mm3 (150-375); Red Blood Count 4.04 M/mm3 (4.2-5.4); Red Cell Distribution Width 12.5 % (11.5-14.5); White Blood Count 3.8 K/mm3 (4.5-10.0)
[2023-01-08 23:19] LABS: Alanine Aminotransferase 32 U/L (6-35); Albumin Level 4.1 g/dL (3.5-5.1); Alkaline Phosphatase 41 U/L (38-126); Anion Gap 9 mmol/L (8-16); Aspartate Amino Transferase 22 U/L (14-36); Bilirubin,Total 0.3 mg/dL (0.2-1.3); Blood Urea Nitrogen 9 mg/dL (7-17); Calcium 8.3 mg/dL (8.4-10.2); Carbon Dioxide 23 mmol/L (22-30); Chloride 105 mmol/L (98-107); Estimated CRCL calculation 111 ml/min; Estimated Glomerular Filt Rate > 60; Glucose 110 mg/dL (65-110); Potassium 3.2 mmol/L (3.4-5.0); Sodium 137 mmol/L (137-145)
[2023-01-08 23:21] LABS: Ethanol < 10 mg/dL (<10)
[2023-01-08 23:24] LABS: Appearance Urine Turbid (Clear); Bacteria Urine None Seen /hpf; Bilirubin Urine 1+ (Negative); Blood Urine 3+ (Negative); Color Urine Red (Yellow); Glucose Urine UA Negative (Negative); Ketones Urine Negative (Negative); Leukocyte Esterase Ur 1+ LEU/UL (Negative); Mucus Urine Present /lpf; Nitrate Urine Negative (Negative); Non Pathogenic Casts 0-2; Protein Urine 1+ mg/dL (Negative); RBC Urine >100 /hpf (0-2); Specific Grav Ur 1.022 (1.001-1.035); Squamous Epithelial Cell Urine Occasional /hpf (Few); WBC Urine 0-5 /hpf
[2023-01-08 23:26] LABS: Add Urine Microscopic? YES; Amphetamine Screen Urine Negative (Negative); Barbiturate Screen Urine Negative (Negative); Benzodiazepines Screen Urine Negative (Negative); Cannabinoid Screen Urine Positive (Negative); Cocaine Screen Urine Negative (Negative); Methadone Screen Urine Negative (Negative); Opiate Screen Urine Negative (Negative); Phencyclidine Screen Urine Negative (Negative)
--- NOTE | 2023-01-09 00:15 | PC.NURSE ---
Patient stated she tried to kill herself twice once by trying to jump out of a window and the other by overdosing on Tylenol.
--- NOTE | 2023-01-09 01:26 | ED.GENADULT ---
HPI - General Adult General Chief complaint: Psychiatric Symptoms Stated complaint: psych symptoms Time Seen by Provider: 01/08/23 23:55 History of Present Illness HPI narrative: This is a 22-year-old female with history of schizophrenia presenting ED for psych eval. Patient says that she is hearing voices. This are more intrusive than normal. They are telling her to hurt herself. She is feeling suicidal and wants to stab herself or cut herself with a knife. She has attempted suicide in the past by trying to overdose on medicine and not a window. She has not have access to a firearm. She denies use of drugs or alcohol. She takes her meds but she admits to missing frequent doses. Related Data Allergies Allergy/AdvReac Type Severity Reaction Status Date / Time nickel Allergy Mild Itching Verified 03/14/22 13:09 [facility] Past Medical History Medical History Acute disruption of syndesmosis of ankle joint Anxiety Depression Encounter for postoperative care No active medical problems Trimalleolar fracture of right ankle Weight gain Surgical History Surgical History Aftercare following right ankle joint replacement surgery Right ankle ORIF DOS: 01/08/2022 Dr. Murray Family History Family History Grandparent HIV (human immunodeficiency virus infection) Social History Social History Years smoked: 3 Smoking status: Current every day smoker Tobacco type: cigarettes Alcohol intake: never Substance use: current Substance use type: does not use Living arrangements: with family Occupation/Education: unemployed Gender identity (if verbalized by the patient): Female Spiritual care concerns: No Exam Narrative: APPEARANCE: No apparent distress. Head: atraumatic. EYES: EOMI, NOSE: Atraumatic NECK: Trachea midline RESPIRATORY: No increased rate of breathing CTAB CARDIOVASCULAR: RRR, ABDOMINAL: Non-distended MUSCULOSKELETAl: No obvious deformities NEURO: Alert. Moving 4/4 extremities SKIN:: Warm, dry. Normal color PSYCHIATRIC: Normal affect Course Vital Signs Vital signs: Vital Signs Temperature 98.1 F 01/08/23 22:46 Pulse Rate 95 05/02/23 22:46 Respiratory Rate 18 01/08/23 22:46 Blood Pressure 120/70 01/08/23 22:46 Pulse Oximetry 100 01/08/23 22:46 Oxygen Delivery Room Air 01/08/23 22:46 Temperature 97.6 F 01/09/23 14:31 Pulse Rate 82 01/09/23 14:31 Respiratory Rate 16 01/09/23 14:31 Blood Pressure 108/74 01/09/23 14:31 Pulse Oximetry 100 01/09/23 14:31 Oxygen Delivery Room Air 01/08/23 22:46 Medical Decision Making MDM Narrative Medical decision making narrative: -Presentation: 22-year-old female presenting for suicidal ideation. -DDX includes but is not limited to: Schizophrenia, depression, suicidal ideation -Co-morbidities complicating care: schizophrenia -Social determinants of health: unemployed and lives with her mother -External Chart Review: previous ER visits -Hx from independent Sources: none -Discussion of Management/Consultants: crisis Center -Independent interpretation of studies: laboratory studies were within acceptable limits. Potassium was repleted. Patient's drug screen is positive for cannabinoids. Alcohol was negative. Dx tests considered but not ordered: -Procedures: -Interventions:80 meq potassium -Shared decision making / Disposition: Patient is medically cleared for psych evaluation and transfer. patient was transferred to [facility] for psychiatric admission. -RX Vital Signs Vital Signs: Vital Signs Temperature 98.1 F 01/08/23 22:46 Pulse Rate 95 01/08/23 22:46 Respiratory Rate 18 01/08/23 22:46 Blood Pressure 120/70 01/08/23 22:46 Pulse O
[2023-01-09] MEDS: POTASSIUM CHLORIDE 20 MEQ TABLET 80 MEQ PO (02:18)
[2023-01-09 02:21] VITALS: BP 116/78; PULSE 81; RESP 14; TEMP 36.6; O2SAT 100
[2023-01-09 04:19] LABS: Influenza A QL RT-PCR Negative (Negative); Influenza B QL RT-PCR Negative (Negative); RSV RNA, RT-PCR Negative (Negative); SARS-CoV-2 RNA PCR Negative (Negative)
--- NOTE | 2023-01-09 04:36 | PC.NURSE ---
Crisis representatives arrived to evaluate the patient.
--- NOTE | 2023-01-09 05:38 | PC.NURSE ---
Miriam from [place] called to inquire about patient. Miriam spoke to nurse, patient, and crisis staff.
[2023-01-09 05:41] LABS: Acetaminophen < 10 ug/mL (10-30)
--- NOTE | 2023-01-09 06:03 | PC.NURSE ---
Elda zafar [place] in [place] called to inquire about patient's COVID vaccine status
--- NOTE | 2023-01-09 06:06 | PC.NURSE ---
Per patient she has had first and second dose of the COVID vaccines.
[2023-01-09 07:10] VITALS: BP 106/64; PULSE 78; RESP 18; TEMP 36.7; O2SAT 100
--- NOTE | 2023-01-09 09:56 | PC.NURSE ---
safety tray ordered
--- NOTE | 2023-01-09 11:03 | PC.NURSE ---
Pt transferred from room 9 to room 15.
--- NOTE | 2023-01-09 11:08 | PC.NURSE ---
Pt requesting to see nurse, states she would not like to stay anymore and would like to go home. Dr. Hunt notified, pt still having SI and recommendation to be placed. Jeremiah notified and counselor to come to reassess pt.
[2023-01-09 14:31] VITALS: BP 108/74; PULSE 82; RESP 16; TEMP 36.4; O2SAT 100
== END 2023-01-09 17:50 ==
PROVIDERS: Emergency Provider Emergency Medicine; PCP Emergency Medicine
DX: F20.9 Schizophrenia, unspecified (principal); Z20.822 Contact with and (suspected) exposure to COVID-19; F41.9 Anxiety disorder, unspecified; F32.A Depression, unspecified; F17.210 Nicotine dependence, cigarettes, uncomplicated
CPT/HCPCS: 36415; 80053; 80307; 81001; 81025; 84443; 85025; 87637; 99285; A9270